=== PATIENT | female | born 1955 | race Caucasian/White ===

== ENCOUNTER → 2025-02-25 | Outpatient (CLI) | payer MEDICARE, BC ==
--- NOTE | 2025-02-28 07:53 | MM ---
Reason for Exam: Screening (asymptomatic). Last mammogram was performed 23 year(s) and 1 month(s) ago. Patient History: Menarche at age 14. First Full-Term at age 23. Left ovary removed at age 59. Postmenopausal. Risk Values: Ananya 5 year model risk: 1.5%. NCI Lifetime model risk: 5.2%. Prior Study Comparison: 01/21/2002 Bilateral Screening Mammogram, [facility]. 02/02/2002 Left Special View Mammogram, [facility]. Tissue Density: There are scattered areas of fibroglandular density. Findings: Analyzed By CAD. There is no suspicious group of microcalcifications or new suspicious mass in either breast. Benign secretory calcifications seen bilaterally. Overall Assessment: Benign, BI-RAD 2 Management: Screening Mammogram of both breasts in 1 year. . Patient should continue monthly self-breast exams. A clinical breast exam by your physician is recommended on an annual basis. This exam should not preclude additional follow-up of suspicious palpable abnormalities. Note on Ananya scores and lifetime risk: 1. A Ananya score greater than 3% is considered moderate risk. If this is the case, consider specialist referral to assess eligibility for a risk reducing agent. 2. If overall lifetime risk for the development of breast cancer is 20% or higher, the patient may qualify for future screening with alternating mammogram and breast MRI. [facility], , 02/28/2025 7:50 AM. Electronically signed and approved by: Jefry Mosqueda M.D. Radiologis
== END | disposition home or self-care (01) ==
LOC: RADMAMWWP 16:06
PROVIDERS: ATTEND Student in an Organized Health Care Education/Training Program
DX: Z12.31 Encounter for screening mammogram for malignant neoplasm of breast (principal); R92.1 Mammographic calcification found on diagnostic imaging of breast; R92.323 Mammographic fibroglandular density, bilateral breasts; Z78.0 Asymptomatic menopausal state
CPT/HCPCS: 77063; 77067